=== PATIENT | female | born 1995 | race Caucasian/White ===

== ENCOUNTER 2025-05-09 14:01 | Emergency (ER) | payer OTHER | END 2025-05-09 16:14 | disposition home or self-care (01) | LOC: JD.ED 14:01 | DX: J45.901 Unspecified asthma with (acute) exacerbation (principal); J20.9 Acute bronchitis, unspecified; Z79.899 Other long term (current) drug therapy; Z79.51 Long term (current) use of inhaled steroids; Z90.49 Acquired absence of other specified parts of digestive tract | CPT/HCPCS: 71046; 71046-26; 99284 ==